=== PATIENT | male | born 1975 | race Caucasian/White ===

== ENCOUNTER → 2020-03-28 15:15 | Outpatient (CLI) | payer BC, SELFPAY ==
--- NOTE | ~2020-03-28 | XR_ITS ---
XR foot RT min 3V 03/28/2020 15:32 INDICATION: Right foot pain PROCEDURE: 4 views right foot COMPARISON: No prior studies for comparison. FINDINGS: Fracture, dislocation or subluxation is not identified. Lisfranc joint intact. The soft tis sues appear within normal limits. No foreign bodies are identified. IMPRESSION: 1: NO ACUTE BONE OR JOINT ABNORMALITY IDENTIFIED. Reviewed, dictated and finalized at location A.
== END ==
PROVIDERS: PCP Family Medicine; Visit Provider Physician Assistant
DX: M79.673 Pain in unspecified foot (principal)
CPT/HCPCS: 73630

== ENCOUNTER 2020-05-24 06:53 | Outpatient (NON) | payer BC, SELFPAY ==
[2020-05-25 00:03] LABS: SARS-CoV-2 RNA PCR Positive
== END 2020-05-24 06:54 ==
LOC: ANHCOVIDDT 06:55
PROVIDERS: PCP Family Medicine; Visit Provider Physician Assistant
DX: U07.1 COVID-19 (principal)
CPT/HCPCS: 87635; C9803; U0003

== ENCOUNTER → 2023-07-10 15:00 | Outpatient (CLI) | payer BC, SELFPAY ==
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
== END ==
PROVIDERS: PCP Family Medicine; Visit Provider Physician Assistant Medical
DX: S00.259A Superficial foreign body of unspecified eyelid and periocular area, initial encounter (principal); X58.XXXA Exposure to other specified factors, initial encounter
CPT/HCPCS: 70200

== ENCOUNTER 2023-10-30 15:49 | Outpatient (CLI) | payer BC, SELFPAY ==
--- NOTE | ~2023-10-30 | XR_ITS ---
XR chest 2V 10/30/2023 16:01 Indication: Cough Procedure: 2 view chest Comparison: No prior studies for comparison. Findings: Left basilar airspace disease, consistent with pneumonia. No pleural effusion, edema or pne umothorax. Heart size normal. No acute osseous abnormality. Impression: 1: Left basilar airspace disease, consistent with pneumonia. Reviewed, dictated and finalized at location B. Impression: 1: Left basilar airspace disease, consistent with pneumonia.
== END 2023-10-30 15:50 ==
LOC: MICIMG 15:52
PROVIDERS: PCP Family Medicine; Visit Provider Physician Assistant
DX: R05.9 Cough, unspecified (principal); R91.8 Other nonspecific abnormal finding of lung field
CPT/HCPCS: 71046

== ENCOUNTER 2023-11-17 16:26 | Emergency (ER) | payer BC, SELFPAY ==
--- NOTE | ~2023-11-17 | XR_ITS ---
EXAMINATION: XR foot RT min 3V DATE: 11/17/2023 16:40 INDICATION: Lateral right foot pain. Injury. TECHNIQUE: 3 views of right foot were obtained. COMPARISON: Right foot radiographs 03/28/2020 FINDINGS: There is an incomplete nondisplaced transverse fracture of proximal diaphysis of fifth meta tarsal. The morphology is suggestive of a stress fracture. There is mild osteoarthritis of first inte rphalangeal joint. IMPRESSION: 1. Incomplete nondisplaced transverse fracture of proximal diaphysis of fifth metatarsal. Reviewed, dictated and finalized at location E. IMPRESSION: 1. Incomplete nondisplaced transverse fracture of proximal diaphysis of fifth m etatarsal.
[2023-11-17 16:26] VITALS: BP 152/99; PULSE 92; RESP 17; TEMP 36.9; O2SAT 97
--- NOTE | 2023-11-17 16:31 | ED.GENADULT ---
HPI - General Adult General Chief complaint: Extremity Problem,Nontraumatic Stated complaint: FOOT PAIN Time Seen by Provider: 11/17/23 16:28 History of Present Illness HPI narrative: Rob is a previously healthy 48M that presented to the ED with pain in his right foot. He was trying to get a trailer on a hitch and kicked it. He had immediate pain on the lateral aspect of his right foot. No other injuries reported. Related Data Home Medications Medication Instructions Recorded Confirmed No Home Medications 11/17/23 11/17/23 Allergies Allergy/AdvReac Type Severity Reaction Status Date / Time No Known Allergies Allergy Verified 11/06/23 10:27 Review of Systems Review of Systems: All systems reviewed & are unremarkable except as noted in HPI and below PMFSH Past Medical History Medical History Healthy adult Surgical History Surgical History H/O rotator cuff surgery Social History Social History Smoking status: Never smoker Second hand tobacco smoke exposure: No Alcohol intake: former Substance use: never Substance use type: does not use Exam Const: General: cooperative, healthy appearing, comfortable, no acute distress, well developed, alert, awake and Physically active Orientation/consciousness: oriented to person, oriented to place and oriented to time HENMT: Head: normal to inspection, normocephalic and atraumatic Ears: hearing grossly normal bilaterally and external ears normal Face/Nose/Sinus: Normal external nose present Eyes: General: appearance normal, both eyes and all related structures Periorbital: periorbital findings normal Sclera: sclerae normal Pupils: Equal, round and reactive pupils present Neck: Neck: normal visual inspection Chest: Chest palpation & inspection: normal inspection of the chest Resp: Effort & Inspection: normal respiratory effort, able to speak in complete sentences and no respiratory distress Cardio: Jugular venous distension: no JVD Skin: General skin exam: normal color and no rashes or lesions noted Neuro: General: oriented to person, oriented to place and oriented to time Cranial nerves: Yes Equal, round and reactive pupils present Extrem: General: normal to inspection Other: TTP over the lateral 5th metatarsal on the right foot Course Course Emergency Course: EXAMINATION: XR foot RT min 3V DATE: 11/17/2023 16:40 INDICATION: Lateral right foot pain. Injury. TECHNIQUE: 3 views of right foot were obtained. COMPARISON: Right foot radiographs 03/28/2020 FINDINGS: There is an incomplete nondisplaced transverse fracture of proximal diaphysis of fifth metatarsal. The morphology is suggestive of a stress fracture. 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 IMPRESSION: 1. Incomplete nondisplaced transverse fracture of proximal diaphysis of fifth metatarsal. He was placed in a post op shoe. Vital Signs Vital signs: Vital Signs Temperature 98.4 F 11/17/23 16:26 Pulse Rate 92 11/17/23 16:26 Respiratory Rate 17 11/17/23 16:26 Blood Pressure 152/99 H 11/17/23 16:26 Pulse Oximetry 97 11/17/23 16:26 Oxygen Delivery Room Air 11/17/23 16:26 Temperature 98.4 F 11/17/23 16:26 Pulse Rate 92 11/17/23 16:26 Respiratory Rate 17 11/17/23 16:26 Blood Pressure 152/99 H 11/17/23 16:26 Pulse Oximetry 97 11/17/23 16:26 Oxygen Delivery Room Air 11/17/23 16:26 Medical Decision Making Vital Signs Vital Signs: Vital Signs Temperature 98.4 F 11/17/23 16:26 Pulse Rate 92 11/17/23 16:26 Respiratory Rate 17 11/17/23 16:26 Blood Pressure 152/99 H 11/17/23 16:26 Pulse Oximetry 97 11/17/23 16:26 Oxygen Delivery Room Air 11/17/23 16:26 Temperature 98.4 F 11/17/23 16:26 Pulse Rate 92 05/
[2023-11-17 17:09] VITALS: BP 148/85; PULSE 85; RESP 17; TEMP 36.9; O2SAT 97
== END 2023-11-17 17:09 | disposition home or self-care (01) ==
LOC: CHSED 17:02
PROVIDERS: Emergency Provider Family Medicine; PCP Family Medicine
DX: S92.351A Displaced fracture of fifth metatarsal bone, right foot, initial encounter for closed fracture (principal); W22.09XA Striking against other stationary object, initial encounter
CPT/HCPCS: 73630; 99284

== ENCOUNTER 2023-11-30 08:48 | Outpatient (CLI) | payer BC, SELFPAY ==
--- NOTE | ~2023-11-30 | XR_ITS ---
EXAMINATION: XR chest 2V DATE: 11/30/2023 09:05 INDICATION: Pneumonia, unspecified organism. TECHNIQUE: Frontal and lateral views of the chest were obtained. COMPARISON: Chest 2 views 10/30/2023 FINDINGS: There is no pneumonia, pleural effusion, or pneumothorax. The heart size is normal. IMPRESSION: 1. No acute cardiopulmonary disease. Reviewed, dictated and finalized at location A.
== END 2023-11-30 08:49 ==
PROVIDERS: PCP Family Medicine; Visit Provider Family Medicine
DX: J18.9 Pneumonia, unspecified organism (principal)
CPT/HCPCS: 71046

== ENCOUNTER 2024-03-01 18:13 | Emergency (ER) | payer BC, SELFPAY ==
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
[2024-03-01 18:12] VITALS: BP 168/99; PULSE 86; RESP 20; TEMP 36.6; O2SAT 96
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
--- NOTE | 2024-03-01 19:03 | PC.NURSE ---
report to leoncio argueta
--- NOTE | 2024-03-01 19:10 | PC.NURSE ---
Assumed care. Report received from Sami CORCORAN
--- NOTE | 2024-03-01 19:35 | PC.NURSE ---
patient is resting quietly on stretcher. ice pack to right shoulder. abrasions noted to right shoulder. denies any needs at this time. call light in reach.
[2024-03-01] MEDS: HYDROcodone/acetaminophen (*CRX) 5-325 MG TABLET 1 TAB PO (20:04)
[2024-03-01 20:23] VITALS: BP 158/90; PULSE 78; RESP 18; O2SAT 99
== END 2024-03-01 20:23 | disposition home or self-care (01) ==
PROVIDERS: Emergency Provider Emergency Medicine; PCP Family Medicine
DX: S42.021A Displaced fracture of shaft of right clavicle, initial encounter for closed fracture (principal); V59.88XA Occupant (driver) (passenger) of pick-up truck or van injured in other specified transport accidents, initial encounter
CPT/HCPCS: 70450; 71046; 72125; 73000; 73030; 99284; A9270; L3670

== ENCOUNTER 2024-08-17 15:24 | Outpatient (RCR) | payer BC, SELFPAY ==
--- NOTE | 2024-08-17 16:43 | PTOPEVAL1 ---
Assessment and note entered by Demetrio Allred Evaluation Information Assessment Status Evaluation Diagnosis right shoulder pain ICD-10 Condition Codes (PT) Pain in right shoulder M25.511 Onset 08/01/24 Subjective Information Pt. reports that he broke the right collarbone in February and healed without a problem. He began lifting weights and began to notice a pop in the right shoulder. He states that he had immediate difficulty reaching overhead. He states that raising the arm overhead results in crunching in the shoulder. He states that he does have some tingling into the forearm. He describes turning objects with the hand is difficult and will have to use the left arm to lift the right arm overhead . He states that he does have some trouble with sleep due to pain waking him. He states that his goal is to decrease right shoulder pain and be able to lift the arm overhead. Reported Pain Level Pain Score 2: Self Report Assessment PT Clinical Summary Pt. is a 49 year old male who enters the clinic with right shoulder pain. Pt. presentation is consistent with right rotator cuff syndrome. He currently presents with impaired ROM, impaired strength, impaired postural awareness and pain. Continued skilled PT is indicated in order to improve these areas to allow for improved comfort with IADL performance. Plan of Care Interventions Electrical Stimulation,Hot Pack/Cold Pack,Manual Therapy,Neuro Re-education,Patient/Caregiver Education,Therapeutic Activities,Therapeutic Exercise PT Services Indicated Yes Treatment Frequency and 2x/week x 8 visits Duration These treatments will address the objective and functional deficits as defined above. The patient will be advanced safely and appropriately in order for the patient to progress towards his/her prior level of function. Additional exercises will be introduced and as well as a comprehensive home exercise program upon discharge, if needed, ?to ensure carryover of functional gains achieved in the clinic. This treatment plan has been reviewed and agreement upon by the patient.
--- NOTE | 2024-08-24 16:40 | PCPTNOTE ---
I reviewed the License Pending Therapist's documentation and agree with the findings.
--- NOTE | 2024-09-09 16:29 | OPREHPOC ---
Outpatient Therapy Plan of Care This is a Multidisciplinary Plan of Care that may contain components documented by all disciplines (PT, OT, and ST.) PT Problem 1 PT Problem #1 Knowledge Deficit PT Goal 1 Goal / Goal Update Pt. will be independent with a HEP addressing postural awareness and mobility. Target Visit 2 Progress Met PT Problem 2 PT Problem #2 Impaired Range of Motion PT Goal 1 Goal / Goal Update Pt. will achieve 160 degrees right shoulder flexion active ROM Pt. will achieve 95 degrees active right shoulder ER Target Visit 8 Progress Not Met PT Goal 2 Goal / Goal Update Continue Target Visit 12 PT Problem 3 PT Problem #3 Impaired Strength PT Goal 1 Goal / Goal Update Pt. will present with 4+/5 gross right proximal u. e. strength Target Visit 8 Progress Not Met PT Problem 4 PT Problem #4 Pain PT Goal 1 Goal / Goal Update Pt. will report pain levels at 1/10 at worst with lifting object weight up to 5# overhead. Target Visit 8 Progress Not Met
--- NOTE | 2024-09-09 16:29 | PTOPPROG ---
Assessment and note entered by Carmen Orellana, PT Evaluation Information Assessment Status Progress Diagnosis right shoulder pain ICD-10 Condition Codes (PT) Pain in right shoulder M25.511 Onset 08/01/24 Subjective Information Mr. Swanson notes overall 50% improvement in his R shoulder pain, and he reports some mild pain in the shoulder since his last visit which he attributes to doing some heavy lifting at home. He feels like his ROM has also improved but his strength is still lacking. He still experiences difficulty reaching overhead, opening jars and still has crunching in the shoulder. He no longer has numbness and tingling into the arm. Assessment PT Clinical Summary Mr. Swanson has attended 8 total skilled therapy visits addressing R shoulder pain. He has made mild improvements in his active ROM but he continues to demonstrate R shoulder weakness and impaired functional use of the arm. Empty can, speed's, and infraspinatus tests indicate R rotator cuff involvement and pt could benefit from further imaging to investigate. Plan of Care Interventions Electrical Stimulation,Hot Pack/Cold Pack, Intermittent Compression Pump,Manual Therapy,Neuro Re-education,Patient/Caregiver Education, Therapeutic Activities,Therapeutic Exercise,Self- Care/Home Management PT Services Indicated Yes Treatment Frequency and Hold for return to doctor and further imaging Duration These treatments will address the objective and functional deficits as defined above. The patient will be advanced safely and appropriately in order for the patient to progress towards his/her prior level of function. Additional exercises will be introduced and as well as a comprehensive home exercise program upon discharge, if needed, ?to ensure carryover of functional gains achieved in the clinic. This treatment plan has been reviewed and agreement upon by the patient.
== END 2024-11-15 23:59 | disposition home or self-care (01) ==
LOC: CHSPT 15:24
PROVIDERS: Visit Provider Orthopaedic Surgery
DX: M25.511 Pain in right shoulder (principal)
CPT/HCPCS: 97014; 97110; 97140; 97161; G0283